=== PATIENT | male | born 1955 | race Caucasian/White ===

== ENCOUNTER 2017-09-13 15:42 | Inpatient (IN) | payer OTHER ==
[2017-09-13] MEDS: ONDANSETRON 4 MG INJ IV (16:33)
[2017-09-13 16:54] LABS: TROPONIN-I 0.048 ng/ml (0.00-0.12)
[2017-09-13] MEDS: FAMOTIDINE 20 MG INJ IV (19:31)
[2017-09-13] MEDS: SOD CHLORIDE 0.9% 500 ML IV (19:31)
[2017-09-13 20:19] LABS: INR 2.58; PROTIME 28.4 Sec (11.9-14.9); PT RATIO 2.2
[2017-09-13 20:20] LABS: PARTIAL THROMBOPLASTIN TIME 45.1 Sec (25.0-35.0)
[2017-09-13 20:39] LABS: ALANINE AMINOTRANSFERASE 46 IU/L (13-69); ALBUMIN 2.3 g/dl (3.3-4.9); ALBUMIN/GLOBULIN RATIO 0.63; ALKALINE PHOSPHATASE 61 IU/L (42-121); ANION GAP 28 (8-16); ASPARTATE AMINO TRANSFERASE 114 IU/L (15-46); BILIRUBIN,INDIRECT 1.4 mg/dl (0-1.1); BILIRUBIN,TOTAL 1.9 mg/dl (0.2-1.3); BLOOD UREA NITROGEN 27 mg/dl (7-20); CALCIUM 7.8 mg/dl (8.4-10.2); CHLORIDE 107 mmol/L (97-110); CREATININE 1.41 mg/dl (0.61-1.24); GLUCOSE 81 mg/dl (70-220); LIPASE 146 U/L (23-300); POTASSIUM 4.9 mmol/L (3.5-5.1); SODIUM 139 mmol/L (135-144); TOTAL PROTEIN 5.9 g/dl (6.1-8.1)
[2017-09-13 20:42] LABS: CARBON DIOXIDE 9 mmol/L (21-31)
[2017-09-13 20:44] LABS: WHITE BLOOD COUNT 7.8 10^3/ul (4.8-10.8)
[2017-09-13 20:44] LABS: ABNORMAL IP MESSAGE 1; HEMATOCRIT 15.3 % (42.0-52.0); MEAN CORPUSCULAR HEMOGLOBIN 34.3 pg (29.0-33.0); MEAN CORPUSCULAR HGB CONC 31.4 g/dl (32.0-37.0); MEAN CORPUSCULAR VOLUME 109.3 fl (82.0-101.0); MEAN PLATELET VOLUME 12.1 fl (7.4-10.4); PLATELET COUNT 113 10^3/UL (140-415); POSITIVE DIFF @See below
[2017-09-13 20:45] LABS: ADD MAN DIFF? YES; HEMOGLOBIN 4.8 g/dl (14.0-18.0); PATH REVIEW? YES
[2017-09-13] MEDS: LORAZEPAM 2 MG INJ IV (21:06)
[2017-09-13] MEDS ORDERED: NACL 0.9% 3 ML SYG IV (21:30)
[2017-09-13] MEDS ORDERED: ACETAMINOPHEN 325 MG TAB PO ×2 (21:30→22:00)
[2017-09-13 21:35] LABS: BAND NEUTROPHILS #M 0.2 10^3/ul (0.0-0.6); BAND NEUTROPHILS % (M) 3 % (0-4); EOSINOPHILS % (M) 1 % (0.0-7.0); LYMPHOCYTES #M 1.1 10^3/ul (0.8-2.9); LYMPHOCYTES % (M) 15 % (15-51); MONOCYTE #M 0.1 10^3/ul (0.3-0.9); MONOCYTES % (M) 2 % (0-11); SEG NEUT #M 6.2 10^3/ul (1.7-7.5); SEGMENTED NEUTROPHILS (M) % 79 % (39-77)
[2017-09-13 21:36] LABS: PLATELET ESTIMATE DECREASED; POLYCHROMASIA 1+ (0-0)
[2017-09-13 21:37] LABS: ANISOCYTOSIS 3+ (0-0); BURR CELLS 2+; POIKILOCYTOSIS 3+ (0-0); TARGET CELLS 1+ (0-0)
[2017-09-13] MEDS ORDERED: ONDANSETRON 4 MG INJ IV (22:00)
[2017-09-13] MEDS: PANTOPRAZOLE 40 MG INJ IV (23:59)
[2017-09-14] MEDS: SOD CHLORIDE 0.9% 250 ML IV* (00:19)
[2017-09-14] MEDS: DEXTROSE 5%-0.45% NACL 1,000 ML IV ×3 (00:21→15:02)
[2017-09-14] MEDS: ONDANSETRON 4 MG INJ IV ×3 (00:21→15:08)
[2017-09-14] MEDS: OCTREOTIDE 500 MCG in DEXTROSE 5% 49 ML IV ×2 (03:15→15:10)
[2017-09-14] MEDS: PANTOPRAZOLE IV 80 MG in SOD CHLORIDE 0.9% 100 ML IV ×3 (03:15→21:54)
[2017-09-14 05:23] LABS: IMMEDIATE SPIN CROSSMATCH 1
[2017-09-14 06:52] LABS: OCCULT BLOOD STOOL POSITIVE (NEGATIVE)
[2017-09-14] MEDS: FAMOTIDINE 20 MG INJ IV (08:24)
[2017-09-14 09:22] LABS: AADO2 Arterial 32.4 mmHg (7.0-24.0); Allen Test ACCEPTAB; Arterial Base Excess -8.7 mmol/L (-3.0-3); Arterial Blood Gas Oxygen Sat 96.3 mmHG (95.0-98.0); Arterial COHb 0.4 % (0.0-3.0); Arterial Fraction of Oxyhgb 95.3 % (93.0-99.0); Arterial HCO3 14.1 mmol/L (22.0-26.0); Arterial MetHb 0.6 % (0.0-1.5); Arterial Total Hemglobin 6.9 g/dl (12.0-18.0); MODE ROOM AIR; Site Right Radial
[2017-09-14] MEDS: METOCLOPRAMIDE 10 MG INJ IV (10:36)
[2017-09-14 10:38] LABS: ADD MAN DIFF? NO
[2017-09-14 10:39] LABS: ABNORMAL IP MESSAGE 1; BASOPHIL # 0.1 10^3/ul (0.0-0.1); BASOPHILS % 0.4 % (0.0-2.0); EOSINOPHILS % 0.1 % (0.0-7.0); HEMATOCRIT 19.7 % (42.0-52.0); LYMPHOCYTES # 0.6 10^3/ul (0.8-2.9); LYMPHOCYTES % 3.7 % (15.0-51.0); MEAN CORPUSCULAR HEMOGLOBIN 32.5 pg (29.0-33.0); MEAN CORPUSCULAR HGB CONC 34.5 g/dl (32.0-37.0); MEAN CORPUSCULAR VOLUME 94.3 fl (82.0-101.0); MONOCYTE # 0.8 10^3/ul (0.3-0.9); MONOCYTES % 5.6 % (0.0-11.0); NEUTROPHIL # 13.2 10^3/ul (1.6-7.5); NEUTROPHILS % 88.8 % (39.0-77.0); PLATELET COUNT 100 10^3/UL (140-415); RED BLOOD COUNT 2.09 10^6/ul (4.70-6.10); RED CELL DISTRIBUTION WIDTH 18.9 % (11.5-14.5)
[2017-09-14 10:39] LABS: WHITE BLOOD COUNT 14.9 10^3/ul (4.8-10.8)
[2017-09-14 10:42] LABS: HEMOGLOBIN 6.8 g/dl (14.0-18.0)
[2017-09-14 11:11] LABS: ALANINE AMINOTRANSFERASE 49 IU/L (13-69); ALBUMIN 2.1 g/dl (3.3-4.9); ALBUMIN/GLOBULIN RATIO 0.55; ALKALINE PHOSPHATASE 57 IU/L (42-121); ANION GAP 22 (8-16); ASPARTATE AMINO TRANSFERASE 143 IU/L (15-46); BILIRUBIN,INDIRECT 2.4 mg/dl (0-1.1); BILIRUBIN,TOTAL 3.6 mg/dl (0.2-1.3); BLOOD UREA NITROGEN 38 mg/dl (7-20); CALCIUM 8.1 mg/dl (8.4-10.2); CARBON DIOXIDE 15 mmol/L (21-31); CHLORIDE 108 mmol/L (97-110); CREATININE 1.86 mg/dl (0.61-1.24); GLUCOSE 104 mg/dl (70-220); POTASSIUM 5.4 mmol/L (3.5-5.1); SODIUM 140 mmol/L (135-144); TOTAL PROTEIN 5.9 g/dl (6.1-8.1)
[2017-09-14] MEDS: morphine 2 MG INJ IV (13:04)
[2017-09-14] MEDS: LORAZEPAM 2 MG INJ IV ×2 (13:49→16:18)
[2017-09-14 16:45] LABS: AADO2 Arterial 58.6 mmHg (7.0-24.0); Allen Test ACCEPTAB; Arterial Base Excess -8.8 mmol/L (-3.0-3); Arterial Blood Gas Oxygen Sat 89.8 mmHG (95.0-98.0); Arterial COHb 0.3 % (0.0-3.0); Arterial Fraction of Oxyhgb 89.1 % (93.0-99.0); Arterial HCO3 14.2 mmol/L (22.0-26.0); Arterial MetHb 0.5 % (0.0-1.5); Arterial Total Hemglobin 8.4 g/dl (12.0-18.0); Arterial pCO2 21.7 mmhg (35-45); MODE ROOM AIR; Site Left Radial
[2017-09-14] MEDS ORDERED: NA BICARBONATE 8.4% 50 ML SYG (16:46)
[2017-09-14] MEDS: PROPOFOL 100 ML IV ×2 (17:20→20:21)
[2017-09-14] MEDS: SODIUM BICARBONATE (IV ADD) 100 MEQ in DEXTROSE 5% 900 ML IV (17:21)
[2017-09-14 18:31] LABS: AADO2 Arterial 308.8 mmHg (7.0-24.0); Allen Test ACCEPTAB; Arterial Base Excess -7.1 mmol/L (-3.0-3); Arterial Blood Gas Oxygen Sat 99.3 mmHG (95.0-98.0); Arterial COHb 0.3 % (0.0-3.0); Arterial Fraction of Oxyhgb 98.5 % (93.0-99.0); Arterial HCO3 16.2 mmol/L (22.0-26.0); Arterial MetHb 0.5 % (0.0-1.5); Arterial Total Hemglobin 7.7 g/dl (12.0-18.0); Arterial pCO2 24.8 mmhg (35-45); MODE VENT - AC; Site Right Radial
[2017-09-14 19:00] LABS: AMMONIA 59 umol/l (9-30)
[2017-09-14] MEDS: LIDOCAINE 1% (MPF) 5 ML VIAL SC (19:00)
[2017-09-14] MEDS: MIDAZOLAM (DRIP) 50 mg/50 mL 50 ML IV (19:00)
[2017-09-14] MEDS ORDERED: SOD CHLORIDE 0.9% 1,000 ML IV (19:01)
[2017-09-14] MEDS: SOD CHLORIDE 0.9% 1,000 ML IV ×2 (19:03→19:30)
[2017-09-14] MEDS ORDERED: PROPOFOL 100 ML (20:13)
[2017-09-14] MEDS: NORepinephrine 8MG/250 ML (PMX 250 ML IV (21:11)
[2017-09-14] MEDS: PHYTONADIONE 10 MG/ML INJ SC (23:39)
[2017-09-15] MEDS: PROPOFOL 100 ML IV ×3 (02:19→18:37)
[2017-09-15] MEDS: SODIUM BICARBONATE (IV ADD) 100 MEQ in DEXTROSE 5% 900 ML IV ×2 (06:27→18:05)
[2017-09-15] MEDS: PANTOPRAZOLE IV 80 MG in SOD CHLORIDE 0.9% 100 ML IV ×2 (07:58→18:40)
[2017-09-15] MEDS: OCTREOTIDE 500 MCG in DEXTROSE 5% 49 ML IV ×2 (07:58→19:00)
[2017-09-15] MEDS: DEXTROSE 5%-0.45% NACL 1,000 ML IV ×3 (08:00→15:14)
[2017-09-15] MEDS: SOD CHLORIDE 0.9% 250 ML IV* (08:00)
[2017-09-15 08:35] LABS: ADD MAN DIFF? NO
[2017-09-15 08:42] LABS: ABNORMAL IP MESSAGE 1; BASOPHILS % 0.5 % (0.0-2.0); EOSINOPHILS # 0.2 10^3/ul (0.0-0.5); EOSINOPHILS % 2.6 % (0.0-7.0); LYMPHOCYTES # 1.4 10^3/ul (0.8-2.9); LYMPHOCYTES % 17.9 % (15.0-51.0); MEAN CORPUSCULAR HEMOGLOBIN 31.4 pg (29.0-33.0); MEAN CORPUSCULAR HGB CONC 34.2 g/dl (32.0-37.0); MEAN CORPUSCULAR VOLUME 91.8 fl (82.0-101.0); MEAN PLATELET VOLUME 12.5 fl (7.4-10.4); MONOCYTE # 0.4 10^3/ul (0.3-0.9); MONOCYTES % 4.9 % (0.0-11.0); NEUTROPHIL # 5.8 10^3/ul (1.6-7.5); NEUTROPHILS % 73.5 % (39.0-77.0); PLATELET COUNT 62 10^3/UL (140-415); POSITIVE DIFF @See below; RED BLOOD COUNT 2.07 10^6/ul (4.70-6.10); RED CELL DISTRIBUTION WIDTH 19.6 % (11.5-14.5)
[2017-09-15 08:42] LABS: WHITE BLOOD COUNT 7.9 10^3/ul (4.8-10.8)
[2017-09-15 08:57] LABS: HEMOGLOBIN 6.5 g/dl (14.0-18.0)
[2017-09-15 08:58] LABS: Allen Test ACCEPTAB; Arterial Base Excess 1.8 mmol/L (-3.0-3); Arterial Blood Gas Oxygen Sat 81.1 mmHG (95.0-98.0); Arterial COHb 0.7 % (0.0-3.0); Arterial Fraction of Oxyhgb 79.7 % (93.0-99.0); Arterial HCO3 24.5 mmol/L (22.0-26.0); Arterial Total Hemglobin 7.3 g/dl (12.0-18.0); Arterial pCO2 30.4 mmhg (35-45); INR 2.06; MODE VENT - AC; PROTIME 23.7 Sec (11.9-14.9); PT RATIO 1.9; Site Right Brachial
[2017-09-15 08:59] LABS: PARTIAL THROMBOPLASTIN TIME 37.7 Sec (25.0-35.0)
[2017-09-15 09:02] LABS: ALANINE AMINOTRANSFERASE 53 IU/L (13-69); ALBUMIN 2.1 g/dl (3.3-4.9); ALBUMIN/GLOBULIN RATIO 0.61; ALKALINE PHOSPHATASE 58 IU/L (42-121); ANION GAP 13 (8-16); ASPARTATE AMINO TRANSFERASE 121 IU/L (15-46); BILIRUBIN,TOTAL 3.3 mg/dl (0.2-1.3); BLOOD UREA NITROGEN 45 mg/dl (7-20); CALCIUM 7.4 mg/dl (8.4-10.2); CARBON DIOXIDE 27 mmol/L (21-31); CHLORIDE 108 mmol/L (97-110); CREATININE 1.71 mg/dl (0.61-1.24); GLUCOSE 141 mg/dl (70-220); SODIUM 144 mmol/L (135-144); TOTAL PROTEIN 5.5 g/dl (6.1-8.1)
[2017-09-15] MEDS: LEVOFLOXACIN 500MG/D5W (PMX) 100 ML IVPB (09:39)
[2017-09-15] MEDS: PHYTONADIONE 10 MG/ML INJ SC ×2 (09:40→17:22)
[2017-09-15] MEDS: MIDAZOLAM (DRIP) 50 mg/50 mL 50 ML IV ×3 (09:40→20:27)
[2017-09-15 10:57] LABS: IMMEDIATE SPIN CROSSMATCH 1 9
[2017-09-15 11:32] LABS: AMMONIA 66 umol/l (9-30)
[2017-09-15] MEDS ORDERED: ROCURONIUM 50 MG INJ (12:08)
[2017-09-15 19:03] LABS: HEMATOCRIT 19.4 % (42.0-52.0)
[2017-09-16] MEDS: PROPOFOL 100 ML IV ×3 (00:27→19:54)
[2017-09-16] MEDS: MIDAZOLAM (DRIP) 50 mg/50 mL 50 ML IV ×4 (02:08→22:33)
[2017-09-16] MEDS: morphine 2 MG INJ IV (02:35)
[2017-09-16] MEDS: PANTOPRAZOLE IV 80 MG in SOD CHLORIDE 0.9% 100 ML IV ×2 (04:45→15:33)
[2017-09-16 05:22] LABS: ADD MAN DIFF? NO
[2017-09-16 05:23] LABS: ABNORMAL IP MESSAGE 1; BASOPHIL # 0.1 10^3/ul (0.0-0.1); BASOPHILS % 0.8 % (0.0-2.0); EOSINOPHILS # 0.3 10^3/ul (0.0-0.5); EOSINOPHILS % 4.2 % (0.0-7.0); HEMATOCRIT 24.5 % (42.0-52.0); HEMOGLOBIN 8.5 g/dl (14.0-18.0); LYMPHOCYTES % 16.1 % (15.0-51.0); MEAN CORPUSCULAR HEMOGLOBIN 31.6 pg (29.0-33.0); MEAN CORPUSCULAR HGB CONC 34.7 g/dl (32.0-37.0); MEAN CORPUSCULAR VOLUME 91.1 fl (82.0-101.0); MEAN PLATELET VOLUME 13.2 fl (7.4-10.4); MONOCYTE # 0.5 10^3/ul (0.3-0.9); MONOCYTES % 7.6 % (0.0-11.0); NEUTROPHIL # 4.3 10^3/ul (1.6-7.5); PLATELET COUNT 42 10^3/UL (140-415); POSITIVE DIFF @See below; RED BLOOD COUNT 2.69 10^6/ul (4.70-6.10); RED CELL DISTRIBUTION WIDTH 18.5 % (11.5-14.5)
[2017-09-16 05:35] LABS: PLATELET COUNT 42 10^3/UL (140-415)
[2017-09-16 05:46] LABS: ANION GAP 10 (8-16); BLOOD UREA NITROGEN 35 mg/dl (7-20); CALCIUM 7.4 mg/dl (8.4-10.2); CARBON DIOXIDE 29 mmol/L (21-31); CHLORIDE 109 mmol/L (97-110); GLUCOSE 102 mg/dl (70-220); MAGNESIUM 1.8 mg/dl (1.7-2.5); POTASSIUM 3.4 mmol/L (3.5-5.1); SODIUM 145 mmol/L (135-144)
[2017-09-16 05:59] LABS: INR 1.83; PROTIME 21.6 Sec (11.9-14.9); PT RATIO 1.7
[2017-09-16 06:00] LABS: PARTIAL THROMBOPLASTIN TIME 39.2 Sec (25.0-35.0); THROMBIN TIME 19.6 SEC (13.8-19.1)
[2017-09-16] MEDS: OCTREOTIDE 500 MCG in DEXTROSE 5% 49 ML IV (06:12)
[2017-09-16] MEDS: SODIUM BICARBONATE (IV ADD) 100 MEQ in DEXTROSE 5% 900 ML IV (06:12)
[2017-09-16] MEDS ORDERED: SUCCINYLCHOLINE CHLORIDE 100 MG/5 ML SYG IV (07:00)
[2017-09-16] MEDS ORDERED: ETOMIDATE 20 MG INJ (07:00)
[2017-09-16] MEDS: DEXTROSE 5%-0.45% NACL 1,000 ML IV ×2 (08:00)
[2017-09-16 08:20] LABS: AADO2 Arterial 492.1 mmHg (7.0-24.0); Allen Test ACCEPTAB; Arterial Base Excess 2.8 mmol/L (-3.0-3); Arterial Blood Gas Oxygen Sat 98.7 mmHG (95.0-98.0); Arterial COHb 0.3 % (0.0-3.0); Arterial Fraction of Oxyhgb 98.1 % (93.0-99.0); Arterial HCO3 26.3 mmol/L (22.0-26.0); Arterial MetHb 0.3 % (0.0-1.5); Arterial Total Hemglobin 9.6 g/dl (12.0-18.0); Arterial pCO2 36.1 mmhg (35-45); MODE VENT - AC; Site Right Radial
[2017-09-16] MEDS ORDERED: POTASSIUM CHLORIDE 50 ML IVPB (09:00)
[2017-09-16] MEDS: MULTIVITAMINS 30 ML CUP NGT (09:38)
[2017-09-16] MEDS: LEVOFLOXACIN 500MG/D5W (PMX) 100 ML IVPB (09:38)
[2017-09-16] MEDS: POTASSIUM CHLORIDE 20 MEQ POWDER FOR ORAL SOLN PO (09:38)
[2017-09-16] MEDS: FOLIC ACID 1 MG TAB NGT (09:39)
[2017-09-16] MEDS: PHYTONADIONE 10 MG/ML INJ SC ×2 (09:39→14:54)
[2017-09-16] MEDS: THIAMINE 100 MG TAB NGT (09:39)
[2017-09-17] MEDS: OCTREOTIDE 500 MCG in DEXTROSE 5% 49 ML IV ×2 (01:54→11:41)
[2017-09-17] MEDS: PANTOPRAZOLE IV 80 MG in SOD CHLORIDE 0.9% 100 ML IV ×4 (01:55→21:57)
[2017-09-17] MEDS ORDERED: PENDING SANTYL ORDER FOR WOUND CARE XX (03:30)
[2017-09-17] MEDS: MIDAZOLAM (DRIP) 50 mg/50 mL 50 ML IV ×3 (04:41→20:52)
[2017-09-17 05:36] LABS: ADD MAN DIFF? NO
[2017-09-17 05:45] LABS: ABNORMAL IP MESSAGE 1; BASOPHILS % 0.6 % (0.0-2.0); EOSINOPHILS # 0.2 10^3/ul (0.0-0.5); EOSINOPHILS % 2.4 % (0.0-7.0); HEMATOCRIT 24.7 % (42.0-52.0); HEMOGLOBIN 8.5 g/dl (14.0-18.0); LYMPHOCYTES # 1.3 10^3/ul (0.8-2.9); LYMPHOCYTES % 20.2 % (15.0-51.0); MEAN CORPUSCULAR HGB CONC 34.4 g/dl (32.0-37.0); MEAN CORPUSCULAR VOLUME 92.9 fl (82.0-101.0); MEAN PLATELET VOLUME 13.2 fl (7.4-10.4); MONOCYTE # 0.7 10^3/ul (0.3-0.9); MONOCYTES % 11.3 % (0.0-11.0); NEUTROPHIL # 4.1 10^3/ul (1.6-7.5); NEUTROPHILS % 64.9 % (39.0-77.0); POSITIVE DIFF @See below; RED BLOOD COUNT 2.66 10^6/ul (4.70-6.10); RED CELL DISTRIBUTION WIDTH 18.6 % (11.5-14.5)
[2017-09-17 05:45] LABS: WHITE BLOOD COUNT 6.4 10^3/ul (4.8-10.8)
[2017-09-17 06:07] LABS: INR 1.93; PROTIME 22.5 Sec (11.9-14.9); PT RATIO 1.8
[2017-09-17 06:08] LABS: PARTIAL THROMBOPLASTIN TIME 39.8 Sec (25.0-35.0)
[2017-09-17 06:11] LABS: THROMBIN TIME 18.5 SEC (13.8-19.1)
[2017-09-17 06:21] LABS: ALANINE AMINOTRANSFERASE 44 IU/L (13-69); ALBUMIN 1.9 g/dl (3.3-4.9); ALBUMIN/GLOBULIN RATIO 0.59; ALKALINE PHOSPHATASE 59 IU/L (42-121); ANION GAP 8 (8-16); ASPARTATE AMINO TRANSFERASE 79 IU/L (15-46); BILIRUBIN,INDIRECT 1.8 mg/dl (0-1.1); BILIRUBIN,TOTAL 4.7 mg/dl (0.2-1.3); BLOOD UREA NITROGEN 26 mg/dl (7-20); CALCIUM 7.3 mg/dl (8.4-10.2); CARBON DIOXIDE 31 mmol/L (21-31); CHLORIDE 110 mmol/L (97-110); CREATININE 0.92 mg/dl (0.61-1.24); GLUCOSE 84 mg/dl (70-220); POTASSIUM 3.4 mmol/L (3.5-5.1); SODIUM 146 mmol/L (135-144); TOTAL PROTEIN 5.1 g/dl (6.1-8.1)
[2017-09-17 06:26] LABS: PLATELET COUNT 44 10^3/UL (140-415)
[2017-09-17 06:31] LABS: MAGNESIUM 1.9 mg/dl (1.7-2.5)
[2017-09-17 06:31] LABS: PHOSPHORUS 2.9 mg/dl (2.5-4.9)
[2017-09-17 08:37] LABS: PLATELET COUNT 44 10^3/UL (140-440)
[2017-09-17 08:39] LABS: AADO2 Arterial 218.2 mmHg (7.0-24.0); Allen Test ACCEPTAB; Arterial Base Excess 3.5 mmol/L (-3.0-3); Arterial Blood Gas Oxygen Sat 96.9 mmHG (95.0-98.0); Arterial COHb 0.1 % (0.0-3.0); Arterial Fraction of Oxyhgb 96.6 % (93.0-99.0); Arterial HCO3 27.3 mmol/L (22.0-26.0); Arterial MetHb 0.2 % (0.0-1.5); Arterial Total Hemglobin 10.3 g/dl (12.0-18.0); Arterial pCO2 38.1 mmhg (35-45); MODE VENT - AC; Site Right Radial
[2017-09-17] MEDS: LEVOFLOXACIN 500MG/D5W (PMX) 100 ML IVPB (09:12)
[2017-09-17] MEDS: MULTIVITAMINS 30 ML CUP NGT (09:12)
[2017-09-17] MEDS: FOLIC ACID 1 MG TAB NGT (09:12)
[2017-09-17] MEDS: THIAMINE 100 MG TAB NGT (09:12)
[2017-09-17] MEDS: POTASSIUM CHLORIDE 20 MEQ POWDER FOR ORAL SOLN PO (09:13)
[2017-09-17] MEDS: PHYTONADIONE 10 MG in DEXTROSE 5% 50 ML IVPB (16:27)
[2017-09-18] MEDS: MIDAZOLAM (DRIP) 50 mg/50 mL 50 ML IV ×2 (03:08→08:47)
[2017-09-18 05:46] LABS: ADD MAN DIFF? NO
[2017-09-18 05:56] LABS: WHITE BLOOD COUNT 6.4 10^3/ul (4.8-10.8)
[2017-09-18 05:57] LABS: ABNORMAL IP MESSAGE 1; BASOPHIL # 0.1 10^3/ul (0.0-0.1); BASOPHILS % 0.9 % (0.0-2.0); EOSINOPHILS # 0.2 10^3/ul (0.0-0.5); EOSINOPHILS % 2.5 % (0.0-7.0); HEMOGLOBIN 9.3 g/dl (14.0-18.0); LYMPHOCYTES # 1.2 10^3/ul (0.8-2.9); LYMPHOCYTES % 19.3 % (15.0-51.0); MEAN CORPUSCULAR HGB CONC 33.2 g/dl (32.0-37.0); MEAN CORPUSCULAR VOLUME 96.2 fl (82.0-101.0); MONOCYTES % 16.1 % (0.0-11.0); NEUTROPHIL # 3.9 10^3/ul (1.6-7.5); NEUTROPHILS % 60.9 % (39.0-77.0); PLATELET COUNT 50 10^3/UL (140-415); POSITIVE DIFF @See below; RED BLOOD COUNT 2.91 10^6/ul (4.70-6.10); RED CELL DISTRIBUTION WIDTH 19.2 % (11.5-14.5)
[2017-09-18 06:18] LABS: INR 1.85; PROTIME 21.8 Sec (11.9-14.9); PT RATIO 1.7
[2017-09-18 06:25] LABS: ANION GAP 7 (8-16); BLOOD UREA NITROGEN 19 mg/dl (7-20); CALCIUM 7.5 mg/dl (8.4-10.2); CARBON DIOXIDE 30 mmol/L (21-31); CHLORIDE 112 mmol/L (97-110); CREATININE 0.75 mg/dl (0.61-1.24); GLUCOSE 120 mg/dl (70-220); MAGNESIUM 1.9 mg/dl (1.7-2.5); PHOSPHORUS 2.7 mg/dl (2.5-4.9); POTASSIUM 4.2 mmol/L (3.5-5.1); SODIUM 145 mmol/L (135-144)
[2017-09-18] MEDS: OCTREOTIDE 500 MCG in DEXTROSE 5% 49 ML IV (07:21)
[2017-09-18] MEDS: PANTOPRAZOLE IV 80 MG in SOD CHLORIDE 0.9% 100 ML IV ×3 (08:12→18:28)
[2017-09-18] MEDS: MULTIVITAMINS 30 ML CUP NGT (08:12)
[2017-09-18] MEDS: FOLIC ACID 1 MG TAB NGT (08:12)
[2017-09-18] MEDS: THIAMINE 100 MG TAB NGT (08:12)
[2017-09-18] MEDS: LEVOFLOXACIN 500MG/D5W (PMX) 100 ML IVPB (09:33)
[2017-09-18] MEDS: DEXMEDETOMIDINE HCL 200 MCG in SOD CHLORIDE 0.9% 48 ML IV ×2 (11:19→14:27)
[2017-09-18] MEDS: PHYTONADIONE 10 MG in DEXTROSE 5% 50 ML IVPB (12:30)
[2017-09-18] MEDS ORDERED: NORepinephrine 8MG/250 ML (PMX 250 ML (15:59)
[2017-09-19] MEDS: DEXMEDETOMIDINE HCL 200 MCG in SOD CHLORIDE 0.9% 48 ML IV ×5 (03:05→23:39)
[2017-09-19 05:30] LABS: ADD MAN DIFF? NO
[2017-09-19] MEDS: PANTOPRAZOLE IV 80 MG in SOD CHLORIDE 0.9% 100 ML IV ×3 (05:30→15:35)
[2017-09-19] MEDS: OCTREOTIDE 500 MCG in DEXTROSE 5% 49 ML IV (05:30)
[2017-09-19 05:33] LABS: ABNORMAL IP MESSAGE 1; BASOPHIL # 0.1 10^3/ul (0.0-0.1); BASOPHILS % 1.2 % (0.0-2.0); EOSINOPHILS # 0.2 10^3/ul (0.0-0.5); EOSINOPHILS % 3.8 % (0.0-7.0); HEMATOCRIT 28.6 % (42.0-52.0); HEMOGLOBIN 9.4 g/dl (14.0-18.0); LYMPHOCYTES # 1.6 10^3/ul (0.8-2.9); MEAN CORPUSCULAR HGB CONC 32.9 g/dl (32.0-37.0); MEAN CORPUSCULAR VOLUME 97.3 fl (82.0-101.0); MONOCYTE # 1.1 10^3/ul (0.3-0.9); NEUTROPHIL # 2.9 10^3/ul (1.6-7.5); NEUTROPHILS % 49.5 % (39.0-77.0); PLATELET COUNT 50 10^3/UL (140-415); POSITIVE DIFF @See below; RED BLOOD COUNT 2.94 10^6/ul (4.70-6.10); RED CELL DISTRIBUTION WIDTH 19.8 % (11.5-14.5)
[2017-09-19 05:33] LABS: WHITE BLOOD COUNT 5.8 10^3/ul (4.8-10.8)
[2017-09-19 06:05] LABS: ANION GAP 9 (8-16); BLOOD UREA NITROGEN 17 mg/dl (7-20); CALCIUM 7.8 mg/dl (8.4-10.2); CARBON DIOXIDE 30 mmol/L (21-31); CHLORIDE 111 mmol/L (97-110); CREATININE 0.76 mg/dl (0.61-1.24); GLUCOSE 132 mg/dl (70-220); MAGNESIUM 1.8 mg/dl (1.7-2.5); PHOSPHORUS 2.8 mg/dl (2.5-4.9); POTASSIUM 3.7 mmol/L (3.5-5.1); SODIUM 146 mmol/L (135-144)
[2017-09-19] MEDS: LEVOFLOXACIN 500 MG TAB NGT (06:15)
[2017-09-19] MEDS: FOLIC ACID 1 MG TAB NGT (08:09)
[2017-09-19] MEDS: THIAMINE 100 MG TAB NGT (08:09)
[2017-09-19] MEDS: MULTIVITAMINS 30 ML CUP NGT (08:09)
[2017-09-19] MEDS: PHYTONADIONE 10 MG in DEXTROSE 5% 50 ML IVPB (08:10)
[2017-09-19] MEDS: LIDOCAINE 1% (MPF) 5 ML VIAL (09:14)
[2017-09-19 09:15] LABS: AADO2 Arterial 81.6 mmHg (7.0-24.0); Allen Test ACCEPTAB; Arterial Base Excess 4.5 mmol/L (-3.0-3); Arterial COHb 0.1 % (0.0-3.0); Arterial Fraction of Oxyhgb 98.8 % (93.0-99.0); Arterial HCO3 28.5 mmol/L (22.0-26.0); Arterial MetHb 0.1 % (0.0-1.5); Arterial Total Hemglobin 10.6 g/dl (12.0-18.0); Arterial pCO2 40.1 mmhg (35-45); MODE VENT - AC; Site Left Radial
[2017-09-19] MEDS: ALBUMIN HUMAN 25% 100 ML IV (09:50)
[2017-09-19 10:00] LABS: FLD MN% 65.9 %; FLD PMN% 34.1 %; FLD RBC 1000 /uL; FLD WBC 79 /cmm
[2017-09-19] MEDS: POTASSIUM CHLORIDE 20 MEQ POWDER FOR ORAL SOLN PO (10:04)
[2017-09-19] MEDS: FUROSEMIDE 20 MG INJ IV (10:23)
[2017-09-19 10:28] LABS: FLUID GLUCOSE 127 mg/dl; FLUID TYPE THORACENTESIS FLUID
[2017-09-19 10:47] LABS: FLUID LD 300 U/L; FLUID TOTAL PROTEIN < 2.0 g/dl; FLUID TYPE THORACENTESIS FLUID
[2017-09-19 10:49] LABS: FLD TYPE THORACENTHESIS
[2017-09-19 10:49] LABS: FLD CLARITY HAZY; FLD COLOR YELLOW
[2017-09-19] MEDS: MIDAZOLAM (DRIP) 50 mg/50 mL 50 ML IV (16:36)
[2017-09-20] MEDS: OCTREOTIDE 500 MCG in DEXTROSE 5% 49 ML IV (03:22)
[2017-09-20] MEDS: PANTOPRAZOLE IV 80 MG in SOD CHLORIDE 0.9% 100 ML IV ×2 (03:22→09:00)
[2017-09-20] MEDS: DEXMEDETOMIDINE HCL 200 MCG in SOD CHLORIDE 0.9% 48 ML IV ×4 (03:23→21:35)
[2017-09-20] MEDS: LEVOFLOXACIN 500 MG TAB NGT (05:45)
[2017-09-20 06:27] LABS: ADD MAN DIFF? NO
[2017-09-20 06:39] LABS: ABNORMAL IP MESSAGE 1; BASOPHIL # 0.1 10^3/ul (0.0-0.1); BASOPHILS % 1.2 % (0.0-2.0); EOSINOPHILS # 0.2 10^3/ul (0.0-0.5); EOSINOPHILS % 3.5 % (0.0-7.0); HEMATOCRIT 28.9 % (42.0-52.0); HEMOGLOBIN 9.6 g/dl (14.0-18.0); LYMPHOCYTES # 1.6 10^3/ul (0.8-2.9); LYMPHOCYTES % 27.8 % (15.0-51.0); MEAN CORPUSCULAR HEMOGLOBIN 32.3 pg (29.0-33.0); MEAN CORPUSCULAR HGB CONC 33.2 g/dl (32.0-37.0); MEAN CORPUSCULAR VOLUME 97.3 fl (82.0-101.0); MEAN PLATELET VOLUME 12.5 fl (7.4-10.4); MONOCYTE # 1.1 10^3/ul (0.3-0.9); MONOCYTES % 19.5 % (0.0-11.0); NEUTROPHIL # 2.7 10^3/ul (1.6-7.5); NEUTROPHILS % 47.5 % (39.0-77.0); PLATELET COUNT 51 10^3/UL (140-415); POSITIVE DIFF @See below; RED BLOOD COUNT 2.97 10^6/ul (4.70-6.10); RED CELL DISTRIBUTION WIDTH 19.7 % (11.5-14.5)
[2017-09-20 06:39] LABS: WHITE BLOOD COUNT 5.7 10^3/ul (4.8-10.8)
[2017-09-20 07:05] LABS: ANION GAP 9 (8-16); BLOOD UREA NITROGEN 16 mg/dl (7-20); CALCIUM 7.9 mg/dl (8.4-10.2); CARBON DIOXIDE 31 mmol/L (21-31); CHLORIDE 110 mmol/L (97-110); CREATININE 0.79 mg/dl (0.61-1.24); GLUCOSE 113 mg/dl (70-220); MAGNESIUM 1.6 mg/dl (1.7-2.5); PHOSPHORUS 3.2 mg/dl (2.5-4.9); POTASSIUM 3.6 mmol/L (3.5-5.1); SODIUM 146 mmol/L (135-144)
[2017-09-20 08:13] LABS: AADO2 Arterial 92.8 mmHg (7.0-24.0); Allen Test ACCEPTAB; Arterial Base Excess 4.9 mmol/L (-3.0-3); Arterial Blood Gas Oxygen Sat 94.1 mmHG (95.0-98.0); Arterial COHb 0.3 % (0.0-3.0); Arterial Fraction of Oxyhgb 93.8 % (93.0-99.0); Arterial MetHb 0 % (0.0-1.5); Arterial Total Hemglobin 10.5 g/dl (12.0-18.0); Arterial pCO2 41.2 mmhg (35-45); MODE VENT - AC; Site Right Radial
[2017-09-20] MEDS: MULTIVITAMINS 30 ML CUP NGT (09:07)
[2017-09-20] MEDS: THIAMINE 100 MG TAB NGT (09:07)
[2017-09-20] MEDS: FOLIC ACID 1 MG TAB NGT (09:07)
[2017-09-20] MEDS: POTASSIUM CHLORIDE 20 MEQ POWDER FOR ORAL SOLN PO (09:08)
[2017-09-20] MEDS: MAGNESIUM SULFATE 2 GM/50 ML 50 ML IVPB (11:03)
[2017-09-20] MEDS: MIDAZOLAM (DRIP) 50 mg/50 mL 50 ML IV ×2 (11:04→17:31)
[2017-09-20] MEDS: PANTOPRAZOLE 40 MG INJ IV (17:31)
[2017-09-21] MEDS: DEXMEDETOMIDINE HCL 200 MCG in SOD CHLORIDE 0.9% 48 ML IV ×6 (03:08→21:43)
[2017-09-21] MEDS: MIDAZOLAM (DRIP) 50 mg/50 mL 50 ML IV ×3 (03:51→21:54)
[2017-09-21 05:49] LABS: ADD MAN DIFF? NO
[2017-09-21] MEDS: PANTOPRAZOLE 40 MG INJ IV ×2 (05:53→18:05)
[2017-09-21] MEDS: LEVOFLOXACIN 500 MG TAB NGT (05:53)
[2017-09-21 05:58] LABS: ABNORMAL IP MESSAGE 1; BASOPHIL # 0.1 10^3/ul (0.0-0.1); BASOPHILS % 1.1 % (0.0-2.0); EOSINOPHILS # 0.2 10^3/ul (0.0-0.5); EOSINOPHILS % 3.8 % (0.0-7.0); HEMATOCRIT 29.3 % (42.0-52.0); HEMOGLOBIN 9.5 g/dl (14.0-18.0); LYMPHOCYTES # 1.6 10^3/ul (0.8-2.9); LYMPHOCYTES % 30.5 % (15.0-51.0); MEAN CORPUSCULAR HEMOGLOBIN 31.8 pg (29.0-33.0); MEAN CORPUSCULAR HGB CONC 32.4 g/dl (32.0-37.0); MEAN PLATELET VOLUME 11.9 fl (7.4-10.4); MONOCYTE # 0.9 10^3/ul (0.3-0.9); MONOCYTES % 16.3 % (0.0-11.0); NEUTROPHIL # 2.5 10^3/ul (1.6-7.5); NEUTROPHILS % 47.9 % (39.0-77.0); POSITIVE DIFF @See below; RED BLOOD COUNT 2.99 10^6/ul (4.70-6.10); RED CELL DISTRIBUTION WIDTH 19.6 % (11.5-14.5)
[2017-09-21 05:58] LABS: WHITE BLOOD COUNT 5.3 10^3/ul (4.8-10.8)
[2017-09-21] MEDS ORDERED: PANTOPRAZOLE 40 MG INJ IV (06:00)
[2017-09-21 06:01] LABS: PLATELET COUNT 44 10^3/UL (140-415)
[2017-09-21 06:30] LABS: MAGNESIUM 1.7 mg/dl (1.7-2.5)
[2017-09-21 06:40] LABS: ALANINE AMINOTRANSFERASE 37 IU/L (13-69); ALBUMIN/GLOBULIN RATIO 0.57; ALKALINE PHOSPHATASE 74 IU/L (42-121); ANION GAP 10 (8-16); ASPARTATE AMINO TRANSFERASE 74 IU/L (15-46); BILIRUBIN,INDIRECT 1.3 mg/dl (0-1.1); BILIRUBIN,TOTAL 2.2 mg/dl (0.2-1.3); BLOOD UREA NITROGEN 15 mg/dl (7-20); CALCIUM 8.2 mg/dl (8.4-10.2); CARBON DIOXIDE 29 mmol/L (21-31); CHLORIDE 111 mmol/L (97-110); CREATININE 0.71 mg/dl (0.61-1.24); GLUCOSE 147 mg/dl (70-220); POTASSIUM 3.7 mmol/L (3.5-5.1); SODIUM 146 mmol/L (135-144); TOTAL PROTEIN 5.5 g/dl (6.1-8.1)
[2017-09-21] MEDS: MULTIVITAMINS 30 ML CUP NGT (08:50)
[2017-09-21] MEDS: POTASSIUM CHLORIDE 20 MEQ POWDER FOR ORAL SOLN PO (08:50)
[2017-09-21] MEDS: THIAMINE 100 MG TAB NGT (08:50)
[2017-09-21] MEDS: FOLIC ACID 1 MG TAB NGT (08:51)
[2017-09-21] MEDS: METOCLOPRAMIDE 10 MG INJ IV (18:05)
[2017-09-22] MEDS: METOCLOPRAMIDE 10 MG INJ IV ×5 (00:12→23:41)
[2017-09-22] MEDS: DEXMEDETOMIDINE HCL 200 MCG in SOD CHLORIDE 0.9% 48 ML IV ×2 (02:43→09:36)
[2017-09-22 05:13] LABS: ADD MAN DIFF? NO
[2017-09-22 05:22] LABS: ABNORMAL IP MESSAGE 1; BASOPHIL # 0.1 10^3/ul (0.0-0.1); EOSINOPHILS # 0.1 10^3/ul (0.0-0.5); EOSINOPHILS % 2.5 % (0.0-7.0); HEMATOCRIT 30.3 % (42.0-52.0); HEMOGLOBIN 9.9 g/dl (14.0-18.0); LYMPHOCYTES # 1.5 10^3/ul (0.8-2.9); LYMPHOCYTES % 30.2 % (15.0-51.0); MEAN CORPUSCULAR HGB CONC 32.7 g/dl (32.0-37.0); MEAN CORPUSCULAR VOLUME 98.1 fl (82.0-101.0); MEAN PLATELET VOLUME 12.6 fl (7.4-10.4); MONOCYTE # 0.9 10^3/ul (0.3-0.9); NEUTROPHIL # 2.3 10^3/ul (1.6-7.5); NEUTROPHILS % 48.1 % (39.0-77.0); PLATELET COUNT 51 10^3/UL (140-415); POSITIVE DIFF @See below; RED BLOOD COUNT 3.09 10^6/ul (4.70-6.10); RED CELL DISTRIBUTION WIDTH 19.6 % (11.5-14.5)
[2017-09-22 05:22] LABS: WHITE BLOOD COUNT 4.8 10^3/ul (4.8-10.8)
[2017-09-22 05:44] LABS: ANION GAP 12 (8-16); BLOOD UREA NITROGEN 13 mg/dl (7-20); CALCIUM 8.2 mg/dl (8.4-10.2); CARBON DIOXIDE 27 mmol/L (21-31); CHLORIDE 111 mmol/L (97-110); GLUCOSE 113 mg/dl (70-220); POTASSIUM 3.8 mmol/L (3.5-5.1); SODIUM 146 mmol/L (135-144)
[2017-09-22] MEDS: MIDAZOLAM (DRIP) 50 mg/50 mL 50 ML IV (05:45)
[2017-09-22] MEDS: PANTOPRAZOLE 40 MG INJ IV ×2 (05:45→18:00)
[2017-09-22] MEDS: LEVOFLOXACIN 500 MG TAB NGT (05:45)
[2017-09-22] MEDS: POTASSIUM CHLORIDE 20 MEQ POWDER FOR ORAL SOLN PO (06:33)
[2017-09-22] MEDS: FUROSEMIDE 40 MG INJ IV (09:36)
[2017-09-22] MEDS: FOLIC ACID 1 MG TAB NGT (09:36)
[2017-09-22] MEDS: MULTIVITAMINS 30 ML CUP NGT (09:36)
[2017-09-22] MEDS: THIAMINE 100 MG TAB NGT (09:36)
[2017-09-22 13:37] LABS: AADO2 Arterial 92.7 mmHg (7.0-24.0); Allen Test ACCEPTAB; Arterial Base Excess 5.8 mmol/L (-3.0-3); Arterial Blood Gas Oxygen Sat 95.7 mmHG (95.0-98.0); Arterial COHb 0.3 % (0.0-3.0); Arterial Fraction of Oxyhgb 95.3 % (93.0-99.0); Arterial HCO3 29.5 mmol/L (22.0-26.0); Arterial MetHb 0.1 % (0.0-1.5); Arterial Total Hemglobin 10.9 g/dl (12.0-18.0); Arterial pCO2 39.3 mmhg (35-45); Blood Gas PS 10; MODE VENT - CPAP; Site Right Radial
[2017-09-23] MEDS: PANTOPRAZOLE 40 MG INJ IV ×2 (06:18→17:32)
[2017-09-23] MEDS: LEVOFLOXACIN 500 MG TAB NGT (06:19)
[2017-09-23] MEDS: METOCLOPRAMIDE 10 MG INJ IV ×3 (06:19→17:32)
[2017-09-23 07:13] LABS: ADD MAN DIFF? NO
[2017-09-23 07:17] LABS: WHITE BLOOD COUNT 7.7 10^3/ul (4.8-10.8)
[2017-09-23 07:17] LABS: ABNORMAL IP MESSAGE 1; BASOPHIL # 0.1 10^3/ul (0.0-0.1); BASOPHILS % 0.8 % (0.0-2.0); EOSINOPHILS % 0.3 % (0.0-7.0); HEMATOCRIT 28.3 % (42.0-52.0); HEMOGLOBIN 9.3 g/dl (14.0-18.0); LYMPHOCYTES # 1.9 10^3/ul (0.8-2.9); LYMPHOCYTES % 24.7 % (15.0-51.0); MEAN CORPUSCULAR HEMOGLOBIN 31.8 pg (29.0-33.0); MEAN CORPUSCULAR HGB CONC 32.9 g/dl (32.0-37.0); MEAN CORPUSCULAR VOLUME 96.9 fl (82.0-101.0); MEAN PLATELET VOLUME 11.8 fl (7.4-10.4); MONOCYTE # 1.2 10^3/ul (0.3-0.9); MONOCYTES % 15.9 % (0.0-11.0); NEUTROPHIL # 4.5 10^3/ul (1.6-7.5); NEUTROPHILS % 57.9 % (39.0-77.0); POSITIVE DIFF @See below; RED BLOOD COUNT 2.92 10^6/ul (4.70-6.10); RED CELL DISTRIBUTION WIDTH 19.9 % (11.5-14.5)
[2017-09-23 07:18] LABS: PLATELET COUNT 44 10^3/UL (140-415)
[2017-09-23 07:40] LABS: ALANINE AMINOTRANSFERASE 56 IU/L (13-69); ALBUMIN 2.2 g/dl (3.3-4.9); ALBUMIN/GLOBULIN RATIO 0.56; ALKALINE PHOSPHATASE 117 IU/L (42-121); ANION GAP 10 (8-16); ASPARTATE AMINO TRANSFERASE 124 IU/L (15-46); BILIRUBIN,INDIRECT 1.2 mg/dl (0-1.1); BILIRUBIN,TOTAL 1.8 mg/dl (0.2-1.3); BLOOD UREA NITROGEN 15 mg/dl (7-20); CALCIUM 8.2 mg/dl (8.4-10.2); CARBON DIOXIDE 30 mmol/L (21-31); CHLORIDE 110 mmol/L (97-110); CREATININE 0.76 mg/dl (0.61-1.24); GLUCOSE 100 mg/dl (70-220); POTASSIUM 3.6 mmol/L (3.5-5.1); SODIUM 146 mmol/L (135-144); TOTAL PROTEIN 6.1 g/dl (6.1-8.1)
[2017-09-23] MEDS: MULTIVITAMINS 30 ML CUP NGT (09:05)
[2017-09-23] MEDS: THIAMINE 100 MG TAB NGT (09:06)
[2017-09-23] MEDS: FUROSEMIDE 40 MG INJ IV (09:06)
[2017-09-23] MEDS: FOLIC ACID 1 MG TAB NGT (09:06)
[2017-09-24] MEDS: METOCLOPRAMIDE 10 MG INJ IV ×4 (01:59→19:32)
[2017-09-24 05:37] LABS: ADD MAN DIFF? NO
[2017-09-24 05:44] LABS: WHITE BLOOD COUNT 10.4 10^3/ul (4.8-10.8)
[2017-09-24 05:44] LABS: ABNORMAL IP MESSAGE 1; BASOPHIL # 0.1 10^3/ul (0.0-0.1); BASOPHILS % 0.5 % (0.0-2.0); EOSINOPHILS % 0.2 % (0.0-7.0); HEMATOCRIT 27.2 % (42.0-52.0); HEMOGLOBIN 9.1 g/dl (14.0-18.0); LYMPHOCYTES # 2.3 10^3/ul (0.8-2.9); LYMPHOCYTES % 22.2 % (15.0-51.0); MEAN CORPUSCULAR HEMOGLOBIN 32.2 pg (29.0-33.0); MEAN CORPUSCULAR HGB CONC 33.5 g/dl (32.0-37.0); MEAN CORPUSCULAR VOLUME 96.1 fl (82.0-101.0); MEAN PLATELET VOLUME 12.7 fl (7.4-10.4); MONOCYTE # 1.4 10^3/ul (0.3-0.9); MONOCYTES % 13.3 % (0.0-11.0); NEUTROPHIL # 6.6 10^3/ul (1.6-7.5); NEUTROPHILS % 63.3 % (39.0-77.0); PLATELET COUNT 50 10^3/UL (140-415); POSITIVE DIFF @See below; RED BLOOD COUNT 2.83 10^6/ul (4.70-6.10); RED CELL DISTRIBUTION WIDTH 20.7 % (11.5-14.5)
[2017-09-24] MEDS: PANTOPRAZOLE 40 MG INJ IV ×2 (06:16→19:32)
[2017-09-24] MEDS: LEVOFLOXACIN 500 MG TAB NGT (06:23)
[2017-09-24 06:44] LABS: ALANINE AMINOTRANSFERASE 65 IU/L (13-69); ALBUMIN 2.3 g/dl (3.3-4.9); ALKALINE PHOSPHATASE 133 IU/L (42-121); ANION GAP 10 (8-16); ASPARTATE AMINO TRANSFERASE 168 IU/L (15-46); BILIRUBIN,INDIRECT 1.4 mg/dl (0-1.1); BILIRUBIN,TOTAL 2.1 mg/dl (0.2-1.3); BLOOD UREA NITROGEN 13 mg/dl (7-20); CALCIUM 8.1 mg/dl (8.4-10.2); CARBON DIOXIDE 29 mmol/L (21-31); CHLORIDE 110 mmol/L (97-110); CREATININE 0.74 mg/dl (0.61-1.24); GLUCOSE 112 mg/dl (70-220); POTASSIUM 3.1 mmol/L (3.5-5.1); SODIUM 146 mmol/L (135-144); TOTAL PROTEIN 6.1 g/dl (6.1-8.1)
[2017-09-24] MEDS: POTASSIUM CHLORIDE 20 MEQ POWDER FOR ORAL SOLN PO (07:53)
[2017-09-24] MEDS: MULTIVITAMINS 30 ML CUP NGT (08:44)
[2017-09-24] MEDS: FUROSEMIDE 40 MG INJ IV (08:44)
[2017-09-24] MEDS: THIAMINE 100 MG TAB NGT (08:44)
[2017-09-24] MEDS: FOLIC ACID 1 MG TAB NGT (08:44)
[2017-09-24] MEDS: POTASSIUM CHLORIDE 100 ML IVPB (14:30)
[2017-09-24] MEDS ORDERED: VASOPRESSIN 60 UNIT in DEXTROSE 5% 57 ML IV (14:30)
[2017-09-24] MEDS: LORAZEPAM 2 MG INJ IV ×2 (16:48→23:54)
[2017-09-24] MEDS: LEVETIRACETAM 1000 MG (PMX) 100 ML IVPB (19:32)
[2017-09-24] MEDS: morphine 2 MG INJ IV (20:50)
[2017-09-24] MEDS ORDERED: LEVETIRACETAM 1000 MG (PMX) 100 ML IVPB (21:00)
[2017-09-24] MEDS: METOPROLOL 5 MG INJ IV (22:08)
[2017-09-25] MEDS: LORAZEPAM 2 MG INJ IV ×4 (00:10→01:31)
[2017-09-25] MEDS: PHENYTOIN 1,000 MG in SOD CHLORIDE 0.9% 100 ML IV (01:30)
[2017-09-25] MEDS: METOPROLOL 5 MG INJ IV (03:22)
[2017-09-25 05:46] LABS: ABNORMAL IP MESSAGE 1; HEMATOCRIT 28.7 % (42.0-52.0); HEMOGLOBIN 9.1 g/dl (14.0-18.0); MEAN CORPUSCULAR HEMOGLOBIN 31.6 pg (29.0-33.0); MEAN CORPUSCULAR HGB CONC 31.7 g/dl (32.0-37.0); MEAN CORPUSCULAR VOLUME 99.7 fl (82.0-101.0); MEAN PLATELET VOLUME 12.7 fl (7.4-10.4); PLATELET COUNT 56 10^3/UL (140-415); POSITIVE DIFF @See below; RED BLOOD COUNT 2.88 10^6/ul (4.70-6.10)
[2017-09-25 05:46] LABS: WHITE BLOOD COUNT 22.4 10^3/ul (4.8-10.8)
[2017-09-25] MEDS: METOCLOPRAMIDE 10 MG INJ IV ×2 (06:00)
[2017-09-25 06:05] LABS: ADD MAN DIFF? YES
[2017-09-25 06:10] LABS: ANION GAP 12 (8-16); BLOOD UREA NITROGEN 18 mg/dl (7-20); CARBON DIOXIDE 29 mmol/L (21-31); CHLORIDE 109 mmol/L (97-110); GLUCOSE 95 mg/dl (70-220); MAGNESIUM 1.5 mg/dl (1.7-2.5); PHOSPHORUS 4.2 mg/dl (2.5-4.9); POTASSIUM 3.9 mmol/L (3.5-5.1); SODIUM 146 mmol/L (135-144)
[2017-09-25] MEDS: LEVOFLOXACIN 500 MG TAB NGT (06:56)
[2017-09-25] MEDS: PANTOPRAZOLE 40 MG INJ IV (06:56)
[2017-09-25 07:57] LABS: ANISOCYTOSIS 1+ (0-0); BAND NEUTROPHILS #M 2.2 10^3/ul (0.0-0.6); BAND NEUTROPHILS % (M) 10 % (0-4); LYMPHOCYTES #M 0.8 10^3/ul (0.8-2.9); LYMPHOCYTES % (M) 4 % (15-51); MONOCYTE #M 0.6 10^3/ul (0.3-0.9); MONOCYTES % (M) 3 % (0-11); PLATELET ESTIMATE SIG DECREASED; POIKILOCYTOSIS 1+ (0-0); SEG NEUT #M 19.1 10^3/ul (1.6-7.5); SEGMENTED NEUTROPHILS (M) % 83 % (39-77); SMUDGE%M 19 % (0-0)
[2017-09-25] MEDS: FOLIC ACID 1 MG TAB NGT (08:47)
[2017-09-25] MEDS: MULTIVITAMINS 30 ML CUP NGT (08:47)
[2017-09-25] MEDS: FUROSEMIDE 40 MG INJ IV (08:47)
[2017-09-25] MEDS: THIAMINE 100 MG TAB NGT (08:47)
[2017-09-25] MEDS: LEVETIRACETAM 1000 MG (PMX) 100 ML IVPB ×2 (08:49→21:05)
[2017-09-25] MEDS: morphine 2 MG INJ IV (10:41)
[2017-09-25] MEDS ORDERED: morphine 2 MG INJ IV (11:30)
[2017-09-25] MEDS ORDERED: LORAZEPAM 2 MG INJ IV (15:30)
[2017-09-25] MEDS ORDERED: ATROPINE 1% 5 ML OPH SL (15:30)
[2017-09-25] MEDS ORDERED: DIMETHICONE STICK TOP (15:30)
[2017-09-25] MEDS ORDERED: ONDANSETRON 4 MG INJ IV (15:30)
[2017-09-25] MEDS: morphine (DRIP) 100 MG/100 ML 100 ML IV (17:13)
[2017-09-25] MEDS: SCOPOLAMINE 1.5 MG PATCH TRANSDERM (17:36)
[2017-09-25] MEDS: ATROPINE 1% 5 ML OPH SL ×2 (17:37→21:11)
[2017-09-25] MEDS: ARTIFICIAL TEARS 15 ML OPH BOTH EYES (21:05)
[2017-09-26] MEDS: ATROPINE 1% 5 ML OPH SL ×6 (00:30→20:30)
[2017-09-26] MEDS: LEVETIRACETAM 1000 MG (PMX) 100 ML IVPB ×2 (08:45→20:30)
[2017-09-26] MEDS: ARTIFICIAL TEARS 15 ML OPH BOTH EYES (08:46)
[2017-09-26] MEDS: LORAZEPAM 2 MG INJ IV ×2 (15:19→20:30)
[2017-09-27] MEDS: ATROPINE 1% 5 ML OPH SL ×5 (00:04→16:30)
[2017-09-27] MEDS: LORAZEPAM 2 MG INJ IV ×5 (00:04→16:00)
[2017-09-27] MEDS: morphine (DRIP) 100 MG/100 ML 100 ML IV (05:05)
[2017-09-27] MEDS: LEVETIRACETAM 1000 MG (PMX) 100 ML IVPB (09:20)
== END 2017-09-27 17:08 | disposition expired | DRG 377 ==
LOC: ICU 09-14 04:39 → E/R 15:42 → ICU 22:53 → MS2 09-25 18:10 → MS4 21:44
PROVIDERS: Internal Medicine
PROC: 0DB78ZX Excision of Stomach, Pylorus, Via Natural or Artificial Opening Endoscopic, Diagnostic (ICD-10-PCS; 2017-09-15 12:00)
PROC: 5A1955Z Respiratory Ventilation, Greater than 96 Consecutive Hours (ICD-10-PCS; principal; 2017-09-15 12:05)
PROC: 02HV33Z Insertion of Infusion Device into Superior Vena Cava, Percutaneous Approach (ICD-10-PCS; 2017-09-15 12:05)
PROC: 0BH17EZ Insertion of Endotracheal Airway into Trachea, Via Natural or Artificial Opening (ICD-10-PCS; 2017-09-15 12:05)
PROC: B548ZZA Ultrasonography of Superior Vena Cava, Guidance (ICD-10-PCS; 2017-09-15 12:05)
PROC: 30233N1 Transfusion of Nonautologous Red Blood Cells into Peripheral Vein, Percutaneous Approach (ICD-10-PCS; 2017-09-15 12:05)
PROC: 30233K1 Transfusion of Nonautologous Frozen Plasma into Peripheral Vein, Percutaneous Approach (ICD-10-PCS; 2017-09-15 12:05)
DX: K29.71 Gastritis, unspecified, with bleeding (principal); J96.01 Acute respiratory failure with hypoxia; R57.1 Hypovolemic shock; R65.21 Severe sepsis with septic shock; J90 Pleural effusion, not elsewhere classified; N17.9 Acute kidney failure, unspecified; A41.9 Sepsis, unspecified organism; D68.9 Coagulation defect, unspecified; E87.2 Acidosis; D62 Acute posthemorrhagic anemia; F10.239 Alcohol dependence with withdrawal, unspecified; G40.501 Epileptic seizures related to external causes, not intractable, with status epilepticus; K20.8 Other esophagitis; F10.229 Alcohol dependence with intoxication, unspecified; E87.5 Hyperkalemia; K70.31 Alcoholic cirrhosis of liver with ascites; Z66 Do not resuscitate; D69.6 Thrombocytopenia, unspecified; Z51.5 Encounter for palliative care
CPT/HCPCS: 32555; 36415; 36430; 36569; 36600; 70450; 70486; 71045; 72125; 74176; 76937; 80048; 80053; 82140; 82270; 82533; 82803; 82945; 83615; 83690; 83735; 84100; 84157; 84484; 85014; 85018; 85025; 85049; 85610; 85670; 85730; 86850; 86900; 86901; 86920; 87070; 87081; 87102; 87116; 88104; 88305; 88312; 89051; 92610; 93005; 94002; 94003; 94770; 96374; 96375; 99291-25; J1940